=== PATIENT | male | born 1955 | race Caucasian/White ===

== ENCOUNTER 2018-05-06 01:53 | Outpatient (RCR) | payer MEDICARE, SELFPAY ==
[2018-05-06] MEDS: Normal Saline Flush 10 ML SYR IVP (09:15)
[2018-05-06 09:23] LABS: Abs Immature Grans 0.02 k/cumm (0.0-0.09); Absolute Basophil Count 0.02 k/cumm (0.0-0.2); Absolute Eosinophil Count 0.12 k/cumm (0.0-0.7); Absolute Lymphocyte Count 0.84 k/cumm (1.2-3.4); Absolute Monocyte Count 0.81 k/cumm (0.11-0.7); Basophils % 0.5; Eosinophils % 3.1; HCT 37.3 % (40.0-50.0); HGB 12.2 g/dL (13.5-17.5); Immature Grans % 0.5; Lymphocytes % 21.5; Mean Corp. HGB Concentration 32.7 g/dL (32.0-36.0); Mean Corpuscular Hemoglobin 27.9 pg (27.0-33.0); Mean Corpuscular Volume 85.2 fL (80-95); Mean Platelet Volume 9.5 fL (8.0-11.0); Monocytes % 20.7; Neutrophils % 53.7; Platelet Count 196 x1000/uL (130-400); RBC 4.38 m/cumm (4.50-6.00); RBC Distribution Width 17.4 % (11.8-14.1); White Blood Cell Count 3.91 k/cumm (4.4-10.8)
[2018-05-06 09:47] LABS: ALT 24 U/L (12-78); AST 18 U/L (15-37); Albumin 3.2 g/dL (3.4-5.0); Alkaline Phosphatase 189 U/L (46-116); Anion Gap 12.1 mmol/L (3-11); BUN 10 mg/dL (7-18); Bilirubin, Total 0.7 mg/dL (0.2-1.0); CO2 22.9 mmol/L (21.0-32.0); CREATININE 1.19 mg/dL (0.70-1.30); Calcium 9.1 mg/dL (8.5-10.1); Chloride 96 mmol/L (98-107); Glucose 115 mg/dL (70-100); Potassium 3.8 mmol/L (3.5-5.1); Sodium 131 mmol/L (136-145); Total Protein 7.4 g/dL (6.4-8.2)
[2018-05-13] MEDS: Normal Saline Flush 10 ML SYR IVP (08:50)
[2018-05-13 09:11] LABS: HCT 35.9 % (40.0-50.0); HGB 11.8 g/dL (13.5-17.5); Mean Corp. HGB Concentration 32.9 g/dL (32.0-36.0); Mean Corpuscular Volume 85.3 fL (80-95); Mean Platelet Volume 9.4 fL (8.0-11.0); RBC 4.21 m/cumm (4.50-6.00); RBC Distribution Width 17.7 % (11.8-14.1); White Blood Cell Count 6.82 k/cumm (4.4-10.8)
[2018-05-13 09:29] LABS: ALT 17 U/L (12-78); AST 20 U/L (15-37); Alkaline Phosphatase 175 U/L (46-116); Anion Gap 11.4 mmol/L (3-11); BUN 6 mg/dL (7-18); Bilirubin, Total 0.7 mg/dL (0.2-1.0); CO2 24.6 mmol/L (21.0-32.0); CREATININE 0.91 mg/dL (0.70-1.30); Calcium 8.8 mg/dL (8.5-10.1); Chloride 96 mmol/L (98-107); Glucose 108 mg/dL (70-100); Potassium 3.4 mmol/L (3.5-5.1); Sodium 132 mmol/L (136-145)
[2018-05-13 09:31] LABS: Platelet Count 296 x1000/uL (130-400)
[2018-05-13 09:32] LABS: Absolute Basophil Count 0.07 k/cumm (0.0-0.2); Absolute Eosinophil Count 0.14 k/cumm (0.0-0.7); Absolute Lymphocyte Count 1.23 k/cumm (1.2-3.4); Absolute Monocyte Count 0.68 k/cumm (0.11-0.7); Acanthocytes 1+; Atypical Lymphocytes % 2; Burr Cells (echinocyte) 2+; Diff Comment Manual Differential; Polychromasia Present
[2018-05-13 09:33] LABS: Poikilocytes 2+
[2018-05-13 10:44] LABS: T4 11.8 ug/dL (4.5-12.5); TSH 0.65 uIU/mL (0.358-3.74)
== END 2018-05-30 ==
LOC: INF 02:56
PROVIDERS: PCP Physician Assistant Medical; Visit Provider Internal Medicine Medical Oncology
DX: C15.9 Malignant neoplasm of esophagus, unspecified (principal); E03.2 Hypothyroidism due to medicaments and other exogenous substances; Z45.2 Encounter for adjustment and management of vascular access device
CPT/HCPCS: 36591 ×2; 80053; 84436; 84443; 85025

== ENCOUNTER 2018-06-03 02:13 | Outpatient (RCR) | payer MEDICARE, SELFPAY | END 2018-06-29 23:59 | disposition home or self-care (01) | LOC: INF 02:13 | PROVIDERS: PCP Physician Assistant Medical; Visit Provider Internal Medicine Medical Oncology | DX: R69 Illness, unspecified (principal) ==